=== PATIENT | male | born 1985 | race African-American/Black ===

== ENCOUNTER 2025-06-08 12:45 | Emergency (ER) | payer SELFPAY | END 2025-06-08 13:55 | disposition home or self-care (01) | LOC: CSHERS 12:45 | DX: B35.3 Tinea pedis (principal); F17.210 Nicotine dependence, cigarettes, uncomplicated | CPT/HCPCS: 99283 ==

== ENCOUNTER 2025-06-26 12:56 | Emergency (ER) | payer SELFPAY | END 2025-06-26 15:10 | disposition home or self-care (01) | LOC: CSHERS 12:56 | DX: J45.901 Unspecified asthma with (acute) exacerbation (principal); F17.210 Nicotine dependence, cigarettes, uncomplicated | CPT/HCPCS: 71046; 94640; J2919 ==

== ENCOUNTER 2025-07-13 13:22 | Emergency (ER) | payer SELFPAY | END 2025-07-13 14:41 | disposition home or self-care (01) | LOC: CSHERS 13:22 | DX: K04.7 Periapical abscess without sinus (principal); K08.89 Other specified disorders of teeth and supporting structures; F17.210 Nicotine dependence, cigarettes, uncomplicated | CPT/HCPCS: 99282 ==

== ENCOUNTER 2025-07-25 12:49 | Emergency (ER) | payer SELFPAY | END 2025-07-25 13:29 | disposition home or self-care (01) | LOC: CSHERS 12:49 | DX: B35.3 Tinea pedis (principal); F17.210 Nicotine dependence, cigarettes, uncomplicated | CPT/HCPCS: 99283 ==